=== PATIENT | female | born 1945 | race Two or more races ===

== ENCOUNTER 2018-08-06 13:47 | Outpatient (CLI) | payer MEDICARE, BC ==
[~2018-08-06] VITALS: Ht 170.2 cm; Wt 70.3 kg
[2018-08-06] MEDS ORDERED: CRESTOR10 M2 ORAL ×2 (15:38→15:41)
[2018-08-06] MEDS ORDERED: VITAMIN D400 INTLU ORAL (15:41)
[2018-08-06] MEDS ORDERED: BIOTIN1 M1 PO (15:41)
--- NOTE | 2018-08-06 15:42 | GI Initial Consult Note ---
History of Present Illness General Date patient seen: Aug 06, 2018 Time patient seen: 15:34 Referring physician: EUGENE Reason for Consultation: Colonoscopy screening Present Illness HPI 72-year old female patient presents today with complaint of abdominal pain and colonoscopy screening. The patient is noted to have a history of hemorrhoids, prior colonoscopy which was approximately 10 years ago. Patient denies any nausea or vomiting. Denies any constipation or diarrhea. Denies any unintentional weight loss or changes in dietary habits. No signs of abuse or neglect. Patient is not fall risk. Home Meds Reported Medications Biotin (Biotin) 1 Mg Capsule, 1 MG PO, CAP 08/06/18 Vitamin D (Vitamin D3) 400 Unit Tablet, 400 UNITS ORAL DAILY, TAB 08/06/18 Rosuvastatin Calcium* (CRESTOR*) 10 Mg Tablet, 10 MG ORAL DAILY, TAB 08/06/18 Rosuvastatin Calcium* (CRESTOR*) 10 Mg Tablet, 10 MG ORAL DAILY, TAB 08/06/18 Allergies: Coded Allergies: No Known Allergies (Unverified , 10/04/12) Patient History History Provided By: Patient, Medical Record [facility] Narrative Hypercholesterolemia Hemorrhoids Past surgical history Tonsillectomy Breast Family History Narrative Brother, sister, father has history of cancer. Social History: Reports: other - Caffeine use; Denies: smoking, alcohol use, drug use Review of Systems All Other Systems: negative except mentioned in HPI Physical Exam Temperature 97.8 Blood pressure 117/71 Pulse 57 96% room air Height 5 7 Weight 155 pounds Sp02 EP Interpretation: reviewed, normal General Appearance: well appearing, no apparent distress, alert Head: normocephalic EENT: PERRL/EOMI, normal ENT inspection Neck: supple Respiratory: normal breath sounds, no respiratory distress Cardiovascular: normal rate Gastrointestinal: normal inspection, non tender, soft, normal bowel sounds, non -distended Rectal: deferred Genitourinary: no CVA tenderness Musculoskeletal: normal inspection, back normal Neurologic: normal inspection, alert, oriented x3, responsive Psychiatric: normal inspection, judgement/insight normal, memory normal Skin: normal inspection, normal color, no rash, warm/dry, palpation normal, well hydrated Lymphatic: normal inspection, no adenopathy GI: Plan Problems: (1) Hypercholesteremia (2) Colonoscopy planned (3) H. pylori infection (4) Duodenal ulcer Plan Breath test ordered Colonoscopy to be scheduled August 20, 2018. - CLD & (Nulytely/Suprep/Movi-Prep) prep instructions given and acknowledged by patient. - NPO @ [place] day prior procedure explained. Will follow with additional recs post procedure. Seen with Dr. Catherine. Thank you for this patient referral. The patient was seen and examined at bedside and all new and available data was reviewed in the patients chart. I agree with the above findings, impression and plan. (Patient seen earlier today. Signature stamp does not reflect patient encounter time.). - MD Shelia MedranoHonorhealth Scottsd[facility] She[facility] Medical CenterTorrieAyo MANAGER ENVIRONMENTAL HEALTH Aug 06, 2018 15:42
[2018-08-07 11:59] VITALS: BP 117/70
== END 2018-08-06 14:17 | disposition home or self-care (01) ==
LOC: PAN 13:47
DX: Z12.11 Encounter for screening for malignant neoplasm of colon (principal); R10.9 Unspecified abdominal pain; E78.00 Pure hypercholesterolemia, unspecified; A04.8 Other specified bacterial intestinal infections; K26.9 Duodenal ulcer, unspecified as acute or chronic, without hemorrhage or perforation
CPT/HCPCS: 83013; G0463; 99202

== ENCOUNTER 2018-08-20 09:09 | Day surgery (SDC) | payer MEDICARE, BC ==
[~2018-08-20] VITALS: Ht 170.2 cm; Wt 70.3 kg
[2018-08-20] VITALS (8 sets, daily range): BP systolic 95–130; BP diastolic 63–76
[~2018-08-20 09:09] MED LIST: BIOTIN1 M1 PO; CRESTOR10 M2 ORAL; VITAMIN D400 INTLU ORAL
--- NOTE | 2018-08-20 10:01 | Pre-Procedure Note/Attestation ---
Pre-Procedure Note/Attestation Complete Prior to Procedure Planned Procedure: not applicable Procedure Narrative: colonoscopy Indications for Procedure Pre-Operative Diagnosis: screening Attestation I attest that I discussed the nature of the procedure; its benefits; risks and complications; and alternatives (and the risks and benefits of such alternatives ), prior to the procedure, with the patient (or the patient's legal livestock sales representative). I attest that, if there was a reasonable possibility of needing a blood transfusion, the patient (or the patient's legal livestock sales representative) was given the [facility] Services standardized written summary, pursuant to the [place] Blood Safety Act ([place] Health and Safety Code # 1645, as amended). I attest that I re-evaluated the patient just prior to the surgery and that there has been no change in the patient's H&P, except as documented below: Fredo Catherine MD Aug 20, 2018 10:01
--- NOTE | 2018-08-20 10:01 | Short Stay Surgery H&P ---
History of Present Illness History of Present Illness Chief Complaint see recent office consult note HPI Liliana Peraza is a 72 year old female who was admitted on for Colon Screening Patient History Allergies: Coded Allergies: No Known Allergies (Unverified , 10/04/12) Medication History Scheduled Rosuvastatin Calcium* (Crestor*), 10 MG ORAL DAILY, (Reported) Rosuvastatin Calcium* (Crestor*), 10 MG ORAL DAILY, (Reported) Vitamin D (Vitamin D3), 400 UNITS ORAL DAILY, (Reported) Miscellaneous Medications Biotin (Biotin), 1 MG PO, (Reported) Plan Attestation Are the patient's medical conditions optimized for surgery? Fredo Catherine MD Aug 20, 2018 10:01
--- NOTE | 2018-08-20 10:48 | Pre-Procedure Note/Attestation ---
Pre-Procedure Note/Attestation Complete Prior to Procedure Planned Procedure: not applicable Procedure Narrative: egd Indications for Procedure Pre-Operative Diagnosis: chronic GERD Attestation I attest that I discussed the nature of the procedure; its benefits; risks and complications; and alternatives (and the risks and benefits of such alternatives ), prior to the procedure, with the patient (or the patient's legal promotions representative). I attest that, if there was a reasonable possibility of needing a blood transfusion, the patient (or the patient's legal promotions representative) was given the [facility] of Health Services standardized written summary, pursuant to the [place] Blood Safety Act ([place] Health and Safety Code # 1645, as amended). I attest that I re-evaluated the patient just prior to the surgery and that there has been no change in the patient's H&P, except as documented below: Fredo Catherine MD Aug 20, 2018 10:48
[2018-08-20] MEDS ORDERED: LR 1000ml ONE (11:00)
[2018-08-20] MEDS ORDERED: Lidocaine 1% MPF 10mg/ml 5ml ONE (11:00)
[2018-08-20] MEDS ORDERED: Propofol 200mg/20ml IV ONE (11:00)
--- NOTE | 2018-08-20 11:22 | Endoscopy Procedure Note ---
Endoscopy Procedure Note General Indication for Procedure: screening colon, GERD Procedures Performed: EGD, colonoscopy Operative Findings/Diagnosis: gastritis, hemorrhoids Specimen: yes Pt Tolerated Procedure Well: Yes Estimated Blood Loss: none Anesthesia Anesthesiologist: jeanne Anesthesia: MAC Inserted Devices Implant(s) used?: No Quality Quality of Bowel Preparation: Good Did scope reach the cecum?: Yes Was there any complications?: No GI Core Measures 50 yrs or older w/o bx or poly: No 10yrs. F/U not recommended: Yes If not recommended, why?: Above average risk 10 yrs. F/U needed: Yes 18 years or older w/prev. colo: Yes <3yrs. since last colonoscopy: No Fredo Catherine MD Aug 20, 2018 11:22
--- NOTE | 2018-08-20 11:55 | Anethesia Preoperative Eval ---
Anesthesia Pre-op PMH/ROS General Date of Evaluation: Aug 20, 2018 Time of Evaluation: 10:40 Anesthesiologist: david ASA Score: ASA 2 Mallampati Score Class I : Soft palate, uvula, fauces, pillars visible Class II: Soft palate, uvula, fauces visible Class III: Soft palate, base of uvula visible Class IV: Only hard plate visible Mallampati Classification: Class II Anesthesia History: none Family History: no anesthesia problems Allergies: Coded Allergies: No Known Allergies (Unverified , 10/04/12) Medications: see eMAR Patient NPO?: Yes NPO Date: Aug 20, 2018 NPO Time: 00:01 Past Medical History Cardiovascular: Reports: HTN; Denies: CAD, LA, valve dz, arrhythmia, other Pulmonary: Denies: asthma, COPD, LAURA, other Gastrointestinal/Genitourinary: Reports: GERD; Denies: CRI, ESRD, other Neurologic/Psychiatric: Denies: dementia, CVA, depression/anxiety, TIA, other Endocrine: Denies: DM, hypothyroidism, steroids, other HEENT: Denies: cataract (L), cataract (R), glaucoma, TUNUNAK (L), TUNUNAK (R), other Hematology/Immune: Denies: anemia, DVT, bleeding disorder, other PSxH Narrative: colon Anesthesia Pre-op Phys. Exam Physician Exam Last Vital Signs Date Time Temp Pulse Resp B/P (MAP) Pulse Ox O2 Delivery O2 Flow Rate FiO2 08/20/18 11:45 98.0 58 16 109/76 98 Room Air 08/20/18 11:30 2 Constitutional: NAD Neurologic: CN 2-12 intact Cardiovascular: RRR Airway Exam Mallampati Score: Class II MO: full ROM: full Dentures: no upper, no lower Anesthesia Pre-op A/P Studies Pre-op Studies: EKG - r Risk Assessment & Plan Assessment: denies cp/sob Plan: mac Pre-Antibiotics Drug: none Bere Aguilar CRNA Aug 20, 2018 11:55
--- NOTE | 2018-08-20 12:21 | 48 Hour Post Anesthesia Eval ---
Post Anesthesia Evaluation Procedure: EGD/Colonoscopy Date of Evaluation: Aug 20, 2018 Time of Evaluation: 12:21 Blood Pressure Systolic: 109 0: 76 Pulse Rate: 58 Respiratory Rate: 14 O2 Sat by Pulse Oximetry: 98 Airway: patent Nausea: No Vomiting: No Hydration Status: adequate Cardiopulmonary Status: stable Mental Status/LOC: patient returned to baseline Follow-up Care/Observations: na Post-Anesthesia Complications: none Follow-up care needed: N/A Bere Aguilar CRNA Aug 20, 2018 12:21
--- NOTE | 2018-08-20 12:32 | 48 Hour Post Anesthesia Eval ---
Post Anesthesia Evaluation Procedure: EGD/Colonoscopy Date of Evaluation: Aug 20, 2018 Time of Evaluation: 12:31 Blood Pressure Systolic: 109 0: 76 Pulse Rate: 71 Respiratory Rate: 14 Airway: patent Nausea: No Vomiting: No Hydration Status: adequate Mental Status/LOC: patient returned to baseline Follow-up Care/Observations: na Post-Anesthesia Complications: none Follow-up care needed: N/A Bere Aguilar CRNA Aug 20, 2018 12:32
--- NOTE | 2018-08-20 12:33 | Immediate Post-Op Evaluation ---
Immediate Post-Op Evalulation Immediate Post-Op Evalulation Procedure: EGD/Colonoscopy Date of Evaluation: Aug 20, 2018 Time of Evaluation: 11:32 IV Fluids: 600 Blood Pressure Systolic: 105 Blood Pressure Diastolic: 70 Pulse Rate: 65 Respiratory Rate: 14 O2 Sat by Pulse Oximetry: 98 Temperature (Fahrenheit): 97.5 Nausea: No Vomiting: No Complications none Patient Status: awake, reacts, patent Hydration Status: adequate Drug: none Bere Aguilar CRNA Aug 20, 2018 12:33
--- NOTE | 2018-08-20 14:45 | Procedure Note ---
DATE OF PROCEDURE: 08/20/2018 PROCEDURE: Upper endoscopy with biopsy and colonoscopy with biopsy. ANESTHESIA: Per BOX BENDER, Bere Tarrillion. INSTRUMENT: Olympus upper endoscope and colonoscope. REASON FOR PROCEDURE: The procedure, risks, benefits, and possible consequences, including hemorrhage, aspiration, perforation and infection, and alternative treatments, were explained to the patient/legal guardian by Dr. Fredo Catherine and the patient/legal guardian understood and accepted these risks. INDICATIONS: Screening colonoscopy, chronic GERD. DESCRIPTION OF PROCEDURE: After informed consent was obtained, the patient was adequately sedated, Olympus upper endoscope was advanced from the mouth and second portion of duodenum and retroflexion performed in the stomach. The patient has evidence of diffuse severe gastritis, most probably H. pylori related. Biopsy from the stomach and body was obtained. The patient had evidence of a small hiatal hernia. The patient had evidence of medium-sized inlet patch in the upper esophagus. At this time, the upper endoscope was retrieved. The patient was turned over for colonoscopy. First, rectal exam was performed, which was normal. Then, the scope was advanced from the rectum into the cecum then subsequently to terminal ileum. Quality of prep was very good. The patient had 2 diminutive polyps in the sigmoid colon, which was removed with cold biopsy forceps technique. Otherwise, normal colonoscopic examination. Retroflexion of rectum showed evidence of small nonbleeding internal hemorrhoids. SUMMARY OF FINDINGS: 1. Inlet patch. 2. Small hiatal hernia. 3. Severe gastritis, most possibly H. pylori related, status post biopsy. 4. Two colonic polyps removed, see above for detail. 5. Internal hemorrhoids. RECOMMENDATIONS: 1. Treat for H. pylori. 2. Follow up positive biopsy results. 3. Repeat colonoscopy in 5 years. I want to thank Dr. Amarjit Saldñaa for this kind referral. Fredo Catherine M.D. DR: DARIUS JOB#: [id number] CC: Amarjit Saldaña M.D.; Fax#: [phone]
== END 2018-08-20 12:40 | disposition home or self-care (01) ==
LOC: GAS 09:09
DX: Z12.11 Encounter for screening for malignant neoplasm of colon (principal); K63.5 Polyp of colon; K64.8 Other hemorrhoids; K21.9 Gastro-esophageal reflux disease without esophagitis; K29.70 Gastritis, unspecified, without bleeding; K44.9 Diaphragmatic hernia without obstruction or gangrene; I10 Essential (primary) hypertension
CPT/HCPCS: 43239; 45380; 93005; J2704; 94003; 94150

== ENCOUNTER 2018-09-03 13:06 | Outpatient (CLI) | payer MEDICARE, BC ==
--- NOTE | 2018-09-03 14:29 | GI Progress Note ---
Assessment/Plan Problems: (1) H. pylori infection ICD Codes: A04.8 - Other specified bacterial intestinal infections SNOMED: 849492567 (2) Duodenal ulcer ICD Codes: K26.9 - Duodenal ulcer, unspecified as acute or chronic, without hemorrhage or perforation SNOMED: 02021558 (3) Colonoscopy planned SNOMED: 894048292 Status: stable Status Narrative Discussed with Dr. Catherine Assessment/Plan SUMMARY OF FINDINGS Reviewed with patient: 1. Inlet patch. 2. Small hiatal hernia. 3. Severe gastritis, most possibly H. pylori related, status post biopsy. 4. Two colonic polyps removed, see above for detail. 5. Internal hemorrhoids. loose stools RECOMMENDATIONS: 1. Treat for H. pylori. -Patient has currently finished 2 weeks of antibiotics, still needs 6 weeks of PPI to complete course. -Return to clinic times 2 months for repeat breath test - Return to clinic as needed if abdominal pain or loose stools does not resolve 3. Repeat colonoscopy in 5 years. The patient was seen and examined at bedside and all new and available data was reviewed in the patients chart. I agree with the above findings, impression and plan. (Patient seen earlier today. Signature stamp does not reflect patient encounter time.). - Fredo Catherine MD Subjective Gastrointestinal/Abdominal: Reports: no symptoms Objective Blood pressure 120/74 Pulse of 60 General Appearance: WD/WN, no apparent distress, alert Cardiovascular: normal rate Respiratory/Chest: normal breath sounds, no respiratory distress Abdominal Exam: normal bowel sounds, non tender, soft Extremities: normal range of motion, non-tender Meri Bass NP Sep 03, 2018 14:29
[2018-09-03 15:10] VITALS: BP 120/74
== END 2018-09-03 15:06 | disposition home or self-care (01) ==
LOC: PAN 13:06
DX: A04.8 Other specified bacterial intestinal infections (principal); K26.9 Duodenal ulcer, unspecified as acute or chronic, without hemorrhage or perforation; K44.9 Diaphragmatic hernia without obstruction or gangrene; K29.70 Gastritis, unspecified, without bleeding; K64.8 Other hemorrhoids
CPT/HCPCS: G0463

== ENCOUNTER 2019-09-10 09:25 | Outpatient (CLI) | payer MEDICARE, BC ==
[2019-09-10] MEDS ORDERED: TAMOXIFEN CITRA10 MG ORAL (09:37)
[2019-09-10 09:38] VITALS: BP 113/67
--- NOTE | 2019-09-10 10:03 | General Progress Note ---
Assessment/Plan Assessment/Plan: Assessment/Plan Problem List: (1) Hemorrhoids ICD Codes: K64.9 - Unspecified hemorrhoids SNOMED: 53594672 (2) H. pylori infection ICD Codes: A04.8 - Other specified bacterial intestinal infections SNOMED: 217672456 (3) Duodenal ulcer ICD Codes: K26.9 - Duodenal ulcer, unspecified as acute or chronic, without hemorrhage or perforation SNOMED: 03779216 (4) Hypercholesteremia I09 Assessment/Plan: anusol HC sup sitz bath will need banding if above fails Subjective ROS Limited/Unobtainable: Yes Allergies: Coded Allergies: No Known Allergies (Unverified , 10/04/12) Objective Last 24 Hour Vital Signs Date Time Temp Pulse Resp B/P (MAP) Pulse Ox O2 Delivery O2 Flow Rate FiO2 09/10/19 09:38 97.6 62 16 113/67 (82) 98 General Appearance: alert EENT: normal ENT inspection Neck: supple Cardiovascular: normal rate Respiratory/Chest: decreased breath sounds Abdomen: normal bowel sounds, non tender, soft Extremities: non-tender Fredo Catherine MD Sep 10, 2019 10:03
== END 2019-09-10 11:25 | disposition home or self-care (01) ==
LOC: PAN 09:25
DX: K64.9 Unspecified hemorrhoids (principal); A04.8 Other specified bacterial intestinal infections; K26.9 Duodenal ulcer, unspecified as acute or chronic, without hemorrhage or perforation; E78.00 Pure hypercholesterolemia, unspecified
CPT/HCPCS: 99212